=== PATIENT | male | born 1955 | race Caucasian/White ===

== ENCOUNTER → 2021-12-07 | Outpatient (REF) | payer SELFPAY | END | disposition home or self-care (01) | LOC: OLS.AHA 03:45 | PROVIDERS: Visit Provider Family Medicine | DX: E03.9 Hypothyroidism, unspecified (principal); F02.81 Dementia in other diseases classified elsewhere, unspecified severity, with behavioral disturbance; E11.8 Type 2 diabetes mellitus with unspecified complications; Z79.899 Other long term (current) drug therapy | CPT/HCPCS: 82140 ==

== ENCOUNTER 2023-05-17 23:25 | Emergency (ER) | payer MEDICAID, SELFPAY ==
[2023-05-17 23:26] VITALS: BP 147/92; PULSE 83; RESP 18; TEMP 35.9; O2SAT 98; BMI 22.8
--- NOTE | 2023-05-17 23:51 | EX.ED.DYSGE1 ---
HPI History of Present Illness Chief Complaint: GI Bleed Informant: patient Onset/Context/Timing Onset: Today Timing: Intermittent Quality: Bleeding Location: Rectum Worsened by: Nothing Relieved by: Nothing Narrative Narrative: Patient presents with rectal bleeding that was noticed tonight. Patient states he had a bowel movement earlier tonight. Patient states there was a few drops of blood after he had a bowel movement. [facility] staff states that there was red blood in the toilet. Patient denies any pain. Patient denies any nausea or vomiting. Patient denies any fevers or chills. Patient denies any urinary complaints. Patient denies any chest pain or shortness of breath. [facility] Medical History Adjustment disorder with mixed anxiety and depressed mood Alcohol dependence with alcohol-induced persisting dementia Ataxia, unspecified Caregiver's noncompliance with patient's other medical treatment and regimen Chronic kidney disease, stage 3b COPD (chronic obstructive pulmonary disease) Delusional disorder Dementia Disorganized schizophrenia Essential hypertension Hyperlipidemia Hypertensive chronic kidney disease with stage 1 through stage 4 chronic kidney disease, or unspecified chronic kidney disease Hypothyroidism, unspecified Muscle weakness (generalized) Need for assistance with personal care Other conduct disorder 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 Other specified problems related to psychosocial circumstances Parkinson disease Peripheral vascular disease, unspecified Psychotic disorder with delusions due to known physiological condition Repeated falls Type 2 diabetes mellitus Type 2 diabetes mellitus with diabetic peripheral angiopathy without gangrene Unspecified lack of coordination Unsteadiness on feet Weakness Home Medications amitriptyline 10 mg tablet 30 mg PO QHS 05/17/23 [History Last Taken Unknown] aspirin 81 mg chewable tablet 1 tab PO DAILY 05/17/23 [History Last Taken Unknown] buspirone 10 mg tablet 10 mg PO TID 05/17/23 [History Last Taken Unknown] cyanocobalamin (vitamin B-12) 100 mcg tablet 100 mcg PO DAILY 05/17/23 [History Last Taken Unknown] divalproex 250 mg tablet,delayed release 250 mg PO Q12H 05/17/23 [History Last Taken Unknown] lorazepam 2 mg tablet (Ativan) 2 mg PO BID anxiety 05/17/23 [History Last Taken Unknown] Surgical History no surgical history no surgical history Social History Smoking Status: Current some day smoker tobacco type: cigarettes ROS ROS ED Constitutional Constitutional ED: Denies chills or fever(s) Eyes Eyes: Denies blurry vision or change in vision ENT ENT ED: Denies rhinorrhea or sore throat Cardiovascular Cardiovascular: Denies chest pain or palpitations Respiratory/Chest Respiratory/Chest: Denies cough or dyspnea Gastrointestinal Gastrointestinal: Denies abdominal pain, nausea or vomiting Genitourinary Genitourinary ED: Denies dysuria or hematuria Musculoskeletal Musculoskeletal: Denies back pain or neck pain Integumentary Denies abscess or rash Neurologic Neurologic: Denies headache(s) or weakness Allergic/Immunologic Allergic/Immunologic ED: Denies mouth swelling or urticaria EXAM Physical Exam Const Vital Signs: 05/17/23 23:26 Temperature 96.6 F L Temperature Source Temporal Pulse Rate 83 Respiratory Rate 18 Blood Pressure 147/92 H Blood Pressure Mean 110 Pulse Ox 98 Oxygen Delivery Method Room Air Positive well nourished and well developed General Appearance ED: well developed and NAD HEENT Reports moist mucous membranes Neck supple and no JVD Resp normal respiratory effort and clear to auscultation bilaterally Cardio regular rate and regular rhythm GI normal to inspection, nondistended, normoactive bowel sounds and non-tender Palpation: soft Extremity normal to inspection General Extremety ED: Negative for edema or tenderness General Extremity: Negative for edema Neuro oriented x3, CN's II-XII intact bilaterally and no sensory deficits noted Sensorium / Orientation: alert Motor Exam: strength 5/5 throughout Psych mental status grossly normal Skin no rashes or lesions noted MDM MDM MDM Narrative Medical decision making narrative: Differential diagnosis includes lower gastrointestinal bleeding, internal hemorrhoid, anal fissure, coagulopathy, and anemia. CBC will be obtained to assess for leukocytosis or anemia. Basic metabolic profile will be obtained to assess for electrolyte abnormality and renal function. PT with INR and PTT will be obtained to assess for coagulopathy. Lab Data Attestation: I reviewed the patient's lab results. Lab results narrative: CBC was reviewed. There is a mild anemia with a hemoglobin of 11.4 and hematocrit 35.9. Platelets were normal. White blood cell count was normal. Basic metabolic profile was reviewed. BUN was 20 and creatinine was 1.50. Electrolytes were within normal limits. PT with INR and PTT were reviewed and were normal. Labs: Laboratory Results - last 24 hr 05/17/23 00:00 WBC 8.6 RBC 3.66 L Hgb 11.4 L Hct 35.9 L MCV 98.1 H MCH 31.1 MCHC 31.8 L RDW Std Deviation 47.8 H RDW Coeff of [place] 13.2 Plt Count 265 MPV 9.6 Immature Gran % (Auto) 0.500 Neut % (Auto) 66.1 Lymph % (Auto) 20.5 [place] % (Auto) 9.1 Eos % (Auto) 3.1 Baso % (Auto) 0.7 Absolute Neuts (auto) 5.7 Absolute Lymphs (auto) 1.76 Nucleated RBC % 0 PT 13.2 INR 1.0 APTT 32.2 Sodium 140 Potassium 4.2 Chloride 105 Carbon Dioxide 27.0 Anion Gap 8 BUN 20 H Creatinine 1.50 H Estim Creat Clear Calc 48.94 Est GFR (MDRD) Af Amer 60 Est GFR (MDRD) Non-Af 50 L BUN/Creatinine Ratio 13.3 Glucose 90 Calcium 9.1 Treatment and Re-Evaluation :: Patient was advised of his findings. Patient is asymptomatic at this time. There is no bleeding noted on exam. I feel the patient will be able to be discharged back to the extended care facility. Patient will be instructed to follow-up with his primary care physician in 5 to 7 days. Patient was instructed to continue to monitor for any further bleeding. Patient was instructed to return if worse in any way. Patient understood and was agreeable with the plan. All questions were answered. Discharge Plan Triage Chief Complaint: GI Bleed ED Provider: David Barreto Dx/Rx/DC Orders Clinical Impression: Rectal bleeding Instructions: ED Lower GI Bleeding (Stable) Prescriptions: No Action amitriptyline 10 mg tablet 30 mg PO QHS aspirin 81 mg tablet,chewable 1 tab PO DAILY lorazepam [Ativan] 2 mg tablet 2 mg PO BID cyanocobalamin (vitamin B-12) 100 mcg tablet 100 mcg PO DAILY buspirone 10 mg tablet 10 mg PO TID divalproex 250 mg tablet,delayed release (DR/EC) 250 mg PO Q12H Primary Care Provider: Dnever Powell Referrals: Denver Powell MD [Primary Care Provider] - 3-5 Days Disposition Disposition: Home, Self Care
[2023-05-18 00:04] LABS: Absolute Lymphocyte Count 1.76 X10^3/uL (0.83-4.51); Absolute Neutrophil Count 5.7 X10^3/uL (2.0-7.7); Basophil# 0.06 X10^3/uL; Basophil% 0.7 % (0-1); Eosinophil# 0.27 X10^3/uL; Eosinophils% 3.1 % (0-5); Hematocrit 35.9 % (40-54); Hemoglobin 11.4 g/dL (13.0-16.5); Lymphocyte # 1.76 X10^3/ul (0.83-4.51); Lymphocyte % 20.5 % (19-41); Mean Corp Hgb Conc 31.8 g/dL (32-36); Mean Corpuscular Hgb 31.1 pg (27.0-32.0); Mean Corpuscular Volume 98.1 fL (80-94); Mean Platelet Vol. 9.6 fl (6.2-12.0); Monocyte# 0.78 X10^3/uL; Monocyte% 9.1 % (0-10); NRBC Flagged by Analyzer 0 % (0-5); Neutrophil # 5.69 X10^3/uL (2.7-7.7); Neutrophil % 66.1 % (47-70); Platelet Count 265 K/mm3 (150-450); RBC Distribution Width CV 13.2 % (11.6-14.6); RBC Distribution Width SD 47.8 fl (35.1-43.9); Red Blood Count 3.66 M/mm3 (4.6-6.2); White Blood Count 8.6 K/mm3 (4.4-11.0)
[2023-05-18 00:11] LABS: Prothrombin Time (Protime)PT. 13.2 SECONDS (11.7-14.9)
[2023-05-18 00:12] LABS: Partial Thromboplast Time 32.2 Seconds (24.1-36.2)
[2023-05-18 00:21] LABS: Anion Gap 8 (5-15); BUN 20 mg/dL (7-18); BUN/Creat Ratio 13.3 RATIO (10-20); Calcium,Total 9.1 mg/dL (8.5-10.1); Chloride 105 mmol/L (98-107); EST Glomerular Filtration Rate 50 mL/min (>60); Est Glom Filt Rate - Afr Amer 60 mL/min (>60); Estimated Creatinine Clearance 48.94 ml/min; Glucose 90 mg/dL (74-106); Potassium 4.2 mmol/L (3.5-5.1); Sodium Level 140 mmol/L (136-145)
[2023-05-18 01:13] VITALS: BP 151/90; PULSE 78; RESP 18; O2SAT 98
--- NOTE | 2023-05-18 02:19 | ED.RN ---
REPORT CALLED TO [facility].
== END 2023-05-18 01:13 | disposition home or self-care (01) ==
PROVIDERS: Emergency Provider Emergency Medicine; PCP Family Medicine; Visit Provider Emergency Medicine
DX: K62.5 Hemorrhage of anus and rectum (principal); J44.9 Chronic obstructive pulmonary disease, unspecified; E11.22 Type 2 diabetes mellitus with diabetic chronic kidney disease; N18.32 Chronic kidney disease, stage 3b; I12.9 Hypertensive chronic kidney disease with stage 1 through stage 4 chronic kidney disease, or unspecified chronic kidney disease; F17.210 Nicotine dependence, cigarettes, uncomplicated; E78.5 Hyperlipidemia, unspecified
CPT/HCPCS: 80048; 85025; 85610; 85730; 99284

== ENCOUNTER → 2023-11-22 | Outpatient (CLI) | payer MEDICAID, SELFPAY ==
--- NOTE | 2023-11-22 08:22 | CT_ITS ---
STUDY: CT CHEST, ABDOMEN T PELVIS WITH CONTRAST REASON FOR EXAM: Male, 68 years old. RECTAL CANCER RADIATION DOSAGE (If Supplied By Facility): CTDIvol = ( 12.53 ) mGy, DLP = ( 1045.37 ) mGycm TECHNIQUE: Transaxial imaging was performed following intravenous administration of IV 100mL Isovue-370. Individualized dose optimization techniques were used for this CT. COMPARISON: No relevant prior comparison study available FINDINGS: CHEST The lungs are unremarkable. No focal infiltrate is seen. No evidence pulmonary nodules. There is no demonstrated pleural abnormality. Normal heart and pericardium. Minimal coronary calcifications. Normal mediastinum. Normal hilar regions. No evidence of central pulmonary embolism. There is atherosclerotic calcifications and tortuosity of the aortic arch and descending thoracic aorta. Mild degenerative changes of the spine. No evidence of lytic or osteoblastic lesions. ABDOMEN Vague low-density area in the right lobe of the adjacent to the inferior falciform ligament could reflect focal fatty infiltration. No other focal lesions are identified in the liver. Normal gallbladder and extrahepatic biliary system. Normal spleen. Normal pancreas. Normal bilateral adrenal glands. 2 small low-density lesions in both kidneys, the largest measures about 1.5 cm likely representing simple cysts for which no further follow-up exam is needed. No evidence of hydronephrosis. The stomach is not well distended. Normal in caliber small bowel loops. Thickening of the rectum could reflect the known rectal cancer. Fecal retention. No evidence of acute diverticulitis. The appendix is visualized and appears normal. There is diffuse atherosclerotic calcification of the abdominal aorta with elongation and tortuosity, but without a demonstrated aneurysm. Normal inferior vena cava. Normal retroperitoneum. There is a small umbilical hernia containing fat. There are diffuse degenerative changes of the visualized lumbar spine. PELVIS Distended urinary bladder. Normal visualized small intestine. Normal visualized colon. There is no pelvic fluid. There is no pelvic lymphadenopathy or mass lesion. CT/CT Chest, Abd, Pel w/Contrast IMPRESSION: 1. No focal acute inflammatory process. 2. No evidence of metastatic disease. 3. Thickening of the rectum could reflect the known rectal cancer. Electronically Signed: Ge Arango MD at 11:30 EST ,
== END | disposition home or self-care (01) ==
LOC: CT 08:21
PROVIDERS: PCP Family Medicine
DX: C20 Malignant neoplasm of rectum (principal)
CPT/HCPCS: 71260; 74177; Q9967